=== PATIENT | male | born 1970 | race Caucasian/White ===

== ENCOUNTER 2016-09-01 13:15 | Emergency (ER) | payer OTHER ==
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
== END 2016-09-01 14:12 | disposition disaster alternative care site (69) ==
LOC: GACC 13:15
DX: M25.551 Pain in right hip (principal); W01.0XXA Fall on same level from slipping, tripping and stumbling without subsequent striking against object, initial encounter